=== PATIENT | female | born 1970 | race Caucasian/White ===

== ENCOUNTER 2020-07-22 17:19 | Emergency (ER) | payer BC ==
[2020-07-22 17:32] VITALS: BP 126/83; PULSE 82; TEMP 98.1; BMI 22.6
[2020-07-22] MEDS ORDERED: DIPHTH,PERTUSS(ACELL),TET 0.5 ML DISP.SYRIN IM ONE ×2 (17:47→18:24)
[2020-07-22] MEDS ORDERED: ACETAMINOPHEN 325 MG TABLET (FP) PO ONE (17:48)
[2020-07-22] MEDS ORDERED: ACETAMINOPHEN 325 MG TABLET (FP) ONE (18:23)
== END 2020-07-22 19:12 | disposition home or self-care (01) ==
LOC: FER 17:19
PROC: 0HQKXZZ Repair Right Lower Leg Skin, External Approach (ICD-10-PCS; principal; 2020-07-22)
PROC: 3E0234Z Introduction of Serum, Toxoid and Vaccine into Muscle, Percutaneous Approach (ICD-10-PCS; 2020-07-22)
DX: S81.012A Laceration without foreign body, left knee, initial encounter (principal)
CPT/HCPCS: 73562-TC-LT-FY; 90715; 99285-25